=== PATIENT | male | born 1965 | race Two or more races ===

== ENCOUNTER 2025-10-21 06:44 | Emergency (ER) | payer OTHER ==
[~2025-10-21] VITALS: Ht 165.1 cm; Wt 81.6 kg
[2025-10-21] MEDS ORDERED: IBUP-1957 PO (07:02)
[2025-10-21 07:05] VITALS: BP 141/91; TEMP 97; O2SAT 99
[2025-10-21] MEDS ORDERED: IBUPROFEN 400 MG TABLET ONE (07:07)
[2025-10-21] MEDS ORDERED: IBUPROFEN 400 MG TABLET PO ONE (07:30)
== END 2025-10-21 07:12 | disposition home or self-care (01) ==
LOC: ER 06:46
DX: S13.4XXA Sprain of ligaments of cervical spine, initial encounter (principal); Z79.1 Long term (current) use of non-steroidal anti-inflammatories (NSAID); V89.2XXA Person injured in unspecified motor-vehicle accident, traffic, initial encounter; Y92.410 Unspecified street and highway as the place of occurrence of the external cause; Y93.89 Activity, other specified; Y99.9 Unspecified external cause status